=== PATIENT | female | born 1990 ===

== ENCOUNTER 2017-05-16 17:11 | Emergency (ER) | payer OTHER ==
[2017-05-16 17:24] VITALS: RESP 18
[2017-05-16 18:20] LABS: RBC URINE 9 /hpf (0-3); TRANSITIONAL EPITHIAL < 1 /hpf (0-3); URINE BACTERIA FEW (<OCC); URINE BILIRUBIN NEGATIVE (NEGATIVE); URINE BLOOD 1+ (NEGATIVE); URINE COLOR Yellow (YELLOW); URINE GLUCOSE (UA) NORMAL (Normal); URINE KETONE 1+ mg/dL (NEGATIVE); URINE LEUKOCYTE ESTERASE 1+ Leu/uL (Negative); URINE PROTEIN NEGATIVE (NEGATIVE); URINE UROBILINOGEN NORMAL mg/dL (0.2-1.0); WBC URINE 16 /hpf (0-5)
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
[2017-05-16] MEDS ORDERED: Emtricitabine-Tenofovir 200 mg-300 mg Tab PO STA (19:17)
[2017-05-16] MEDS ORDERED: cefTRIAXone (Rocephin) 250 mg Inj IM STA (19:17)
[2017-05-16] MEDS ORDERED: Emtricitabine-Tenofovir 200 mg-300 mg Tab PO NR (19:30)
[2017-05-16 20:06] LABS: BASO % 0.4 % (0.0-2.0); EOS % 0.1 % (0.0-4.0); HEMATOCRIT 43.4 % (34.0-47.0); LYMPH # 1.6 K/uL (1.0-4.3); LYMPH % 19.7 % (20.0-40.0); MEAN CELL VOLUME 87.6 fL (81.0-99.0); MEAN CORPUSCULAR HGB CONC 34.2 g/dL (33.0-37.0); MEAN PLATELET VOLUME 9.1 fL (7.2-11.7); MONO # 0.3 K/uL (0.0-0.8); MONO % 3.9 % (0.0-10.0); NRBC % 0.1 % (0.0-2.0); RED CELL DISTRIBUTION WIDTH 13.4 % (11.5-14.5); WHITE BLOOD COUNT 8.3 K/uL (4.8-10.8)
[2017-05-16 20:21] LABS: CALCIUM 8.9 mg/dl (8.6-10.4); GFR AFRICAN-AMERICAN > 60
[2017-05-16 20:25] LABS: ALKALINE PHOSPHATASE 80 U/L (38-126); ALT/SGPT 18 U/L (9-52); AST/SGOT 56 U/L (14-36); BILIRUBIN,TOTAL 1.8 mg/dL (0.2-1.3); BLOOD UREA NITROGEN 7 mg/dL (7-17); CARBON DIOXIDE 25 mmol/L (22-30); CHLORIDE 101 mmol/L (98-107); GLUCOSE,RANDOM 101 mg/dL (65-105); POTASSIUM 5.3 mmol/L (3.6-5.2); SODIUM 135 mmol/L (132-148); TOTAL PROTEIN 9.9 g/dL (6.3-8.3)
[2017-05-16 20:31] VITALS: BP 122/73; PULSE 75; TEMP 97.7
[2017-05-16 20:42] VITALS: O2SAT 96
== END 2017-05-16 20:48 | disposition home or self-care (01) ==
LOC: C.ER 17:11
DX: T74.21XA Adult sexual abuse, confirmed, initial encounter (principal); Y08.89XA Assault by other specified means, initial encounter
CPT/HCPCS: 80053; 81001; 85025; 86592; 86703; 86706; 96372; 99285; J0696